=== PATIENT | male | born 1965 | race African-American/Black ===

== ENCOUNTER 2019-05-09 18:35 | Emergency (ER) | payer BC ==
[2019-05-09 19:18] VITALS: BP 143/80; PULSE 99; TEMP 98.2
--- NOTE | 2019-05-09 19:25 | PDOC ---
Rapid Medical Evaluation Time Seen by Provider: 05/09/19 19:18 Medical Evaluation: Vital Signs Temp Pulse Resp BP Pulse Ox 98.2 F 99 H 20 143/80 94 L 05/09/19 19:17 05/09/19 19:17 05/09/19 19:17 05/09/19 19:17 05/09/19 19:17 05/09/19 19:21 I performed a brief in-person evaluation of this patient. Pt is a 54 y/o male who presents to the ED with 5 days of cough, and fever for the last 5 days. He states that he has been taking Motrin, last at about 5pm. Tmax was 102.3F. 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 He denies any recent travel. Pertinent physical exam findings: non-toxic, no respiratory distress, speaking in full sentences. I have ordered the following: cxr Patient to proceed to [facility] for further evaluation. Discharge Disposition - Diagnosis Fever - Referrals - Patient Instructions - Post Discharge Activity
--- NOTE | 2019-05-09 20:28 | PDOC ---
Rapid Medical Evaluation Time Seen by Provider: 05/09/19 19:18 Medical Evaluation: Vital Signs Temp Pulse Resp BP Pulse Ox 98.2 F 99 H 20 143/80 94 L 05/09/19 19:17 05/09/19 19:17 05/09/19 19:17 05/09/19 19:17 05/09/19 19:17 05/09/19 20:22 HPI: COVID-19 CDC guideline data points: The patient is a 54 y/o presents with possible exposure, suspected, or confirmed] COVID-19 with associated symptoms of fever, dry cough, SOB, and has hx of diabetes. glucose this am 241 ROS: NEGATIVE:, chest pain, lightheadedness, dizziness, nausea, vomiting and diarrhea. Other 12 point ROS reviewed and negative. Exam: General: NAD, Well-Appearing, Awake, Alert Oriented x3. Vital signs stable. ENT: No rhinorrhea or nasal congestion. Neck: FROM, no midline tenderness. Lungs: Clear to auscultation bilaterally without wheezes, rhonchi or rales. Normal excursion. Patient is able to speak in full sentences. Heart: HR: 99 Regular rhythm, S1-S2 present, no murmurs rubs or gallops. Abdomen: Non-distended. MSK/Extremities: No decrease ROM, No obvious deformities. No obvious cyanosis noted. Neuro: Normal Gait, Cranial Nerves II through XII Grossly Intact. Skin: No obvious rashes, bruising. Color Normal Appearing. 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 Pt ambulated and maintained o2 sat of 96 % on RA and had a pulse of 95, repeat temp 100.2 Discharge Disposition - Diagnosis Pneumonia - Discharge Dispostion Disposition: HOME Condition at time of disposition: Good - Referrals - Patient Instructions Printed Discharge Instructions: DI for Pneumonia -- Adult, R-[facility] COVID-19 Isolation Protocol, [facility]-Coronavirus Instructions Additional Instructions: You were seen for your cough and possible Coronavirus (COVID-19) Take azithromycin for pneumonia. Quarantine until you receive results Take Tylenol 650 mg every 6 hours as needed for fever or pain. You may take Robitussin or other zvvo-dcc-oxovjxg cough syrup. Follow the dosing instructions on the bottle. Warm tea, honey, and salt water gargles may help your symptoms. Please take precautions and self quarantine for 2 weeks and follow-up with your primary care doctor and the Department of Health. Return to the nearest emergency department for shortness of breath, difficulty breathing, chest pain, or if you have any changes in your symptoms. - Post Discharge Activity
== END 2019-05-09 21:09 ==
LOC: JER 18:35
DX: J18.9 Pneumonia, unspecified organism (principal); Z20.828 Contact with and (suspected) exposure to other viral communicable diseases
CPT/HCPCS: 71045-TC-FY; 99283-25